=== PATIENT | female | born 1985 | race Caucasian/White ===

== ENCOUNTER 2016-06-28 11:54 | Emergency (ER) | payer MEDICARE, MEDICAID ==
[~2016-06-28] VITALS: Ht 162.6 cm; Wt 72.7 kg
[~2016-06-28 11:54] MED LIST: 00186-0370-20 IH; ADVAIR 500/28 DISKU1 IH; ADVAIR IH; ALBUTEROL SULFAT3 M3 IH; ALBUTEROL0.83 MG/ML IH; AMOXICILLIN 50500 MG PO; AMOXICILLIN 8751 TAB PO; ANXIETY MED; ASMANEX TW110 MCG/Ac; BACTROBAN15 GM TOP; BIOTIN1 MG PO; BREO IH; BROVANA15 MCG/2 M IH; CALCIUM1 CAP PO; CARAFATE 1GM1 G PO; CEPHALEXIN500 M1 PO; CLARITIN 1010 MG/TAB PO; CLIMARA 0.1 PATCH.W1 TD; CLONAZEPAM1 M1 PO; DEPO PROVER150 MG/ML IM; DOXYCYCLINE 10100 MG PO; DULERA1 AR1 IH; DUONEB 3 MG/3 ML3 ML IH; ERY-TAB250 M1 PO; ERY-TAB500 MG; FASTIN30 MG PO; FISH OIL SUPER1 SGL PO; FLAGYL500 MG PO; FLEXERIL 1010 MG/TAB PO; FLOMAX 0.40.4 MG/CAP PO; FLONASE NASAL S16 GM NS; FLOVENT 110MCG7.9 GM IH; FOLIC ACID 11 MG/TA1 PO; HYDROCODONE/APAP PO; IMPLANON68 MG ID; IPRATROPIUM BROM3 M1 IH; LEVAQUIN 5500 MG/TA1 PO; LORTAB 5/500 501 TAB PO; LORTAB PO; MACROBID 1100 MG/CAP PO; MEDROL 4MG DOSPA4 MG PO; MOTRIN 600600 MG/TAB PO; MULTIPLE VITAMI1 CAP PO; MYLANTA 150 ML150 M1 PO; NAPROSYN500 MG PO; NO HOME MEDICATIONS; NORCO 325 MG-101 TAB PO; NORCO 325 MG-51 TAB PO; NORCO 325 MG-7.1 TAB PO; NORCOELIX PO; ORAPRED ODT10 MG PO; OXYGEN; PEN-VEE K500 MG PO; PERCOCET 325 MG1 TA2 PO; PHENERGAN 25 TA25 MG PO; POTASSIUM595 MG PO; PREDNISONE10 MG PO; PREDNISONE20 MG PO; PRENATAL1 TA2 PO; PRENATAL1 TA7 PO; PRILOSEC 20MG20 MG PO; PROAIR HFA0.09 MG/AC IH; PROTONIX 40MG T40 MG PO; PROVENTIL0.09 MG/A1 IH; PULMICORT90 MCG/Act IH; PULMOCORT; PYRIDIUM200 M1 PO; QVAR0.08 MG/AC IH; ROXICODONE 55 MG/TAB PO; RT ADVAIR 528 DISKUS IH; SEPTRA DS 8001 TAB PO; SINGULAIR 110 MG/TAB PO; SINGULAIR PO; SINGULAIR10 MG PO; SPIRIVA18 MCG IH; SYMBICORT1 AE3 IH; TUSS PO; ULTRAM 50MG TAB50 MG PO; VENTOLIN0.09 MG IH; VICODIN 5/5001 UDTAB PO; VIT D; VITAMIN B COMPL1 T16 PO; VITAMIN B11000 MCG/M IM; VITAMIN B12100 MC1 SL; VITAMIN B12500 MCG PO; VITAMIN D 400400 IU PO; XOPENEX HF0.045 MG/A IH; ZANTAC 150MG T150 MG PO; ZITHROMAX500 M2 PO; ZOFRAN 4MG T4 MG/TAB PO; ZOFRAN ODT4 MG PO; ZYRTEC 10MG10 MG PO; ZYRTEC10 MG PO
[2016-06-28 11:57] VITALS: BP 112/94; TEMP 98.2
[2016-06-28 13:50] VITALS: PULSE 90
[2016-09-05] MEDS ORDERED: WELLBUTRIN SR100 M1 PO (14:39)
[2016-10-12] MEDS ORDERED: FASTIN30 MG PO (17:44)
== END 2016-06-28 13:50 | disposition home or self-care (01) ==
LOC: COL.ER 11:54
DX: J45.901 Unspecified asthma with (acute) exacerbation (principal); F17.210 Nicotine dependence, cigarettes, uncomplicated

== ENCOUNTER 2016-07-02 19:29 | Emergency (ER) | payer MEDICARE, MEDICAID ==
[~2016-07-02] VITALS: Ht 162.6 cm; Wt 72.7 kg
[2016-07-02 20:04] LABS: BASO # 0.1 (0.0-0.2); BASO % 1.2 % (0.0-2.0); EOS # 0.8 (0.0-0.7); EOS % 9.2 % (0-4.0); GRAN # 4.8 (1.4-6.5); GRAN % 52.8 % (42.2-75.2); HEMATOCRIT 38.3 % (37.0-47.0); HEMOGLOBIN 12.8 g/dl (12.5-16.0); LYMPH # 2.9 (1.2-3.4); LYMPH % 32.1 % (20.0-51.0); MEAN CELL VOLUME 88 fl (80.0-100.0); MEAN CORPUSCULAR HEMOGLOBIN 29 pg (27.0-31.0); MEAN CORPUSCULAR HGB CONC 33 g/dl (33.0-37.0); MONO # 0.4 (0.1-0.6); MONO % 4.4 % (1.7-9.3); PLATELET COUNT 333 K/mm3 (130-400); RED BLOOD COUNT 4.36 M/mm3 (4.10-5.30); REDCELL DISTRIBUTION WIDTH-CV 12.7 % (11.5-14.5); WHITE BLOOD COUNT 9.1 K/mm3 (4.8-10.8)
[2016-07-02] MEDS ORDERED: CELEXA 20MG20 MG/TAB PO (20:09)
[2016-07-02] MEDS ORDERED: XANAX .25M0.25 MG/TA PO (20:09)
[2016-07-02] MEDS ORDERED: TYLENOL W/COD1 UDTAB PO (20:10)
[2016-07-02] MEDS ORDERED: DRISDOL50000 IU PO (20:10)
[2016-07-02 20:15] LABS: ADJUSTED CALCIUM 9.6 mg/dL (8.4-10.2); ALANINE AMINOTRANSFERASE 37 U/L (9-52); ALBUMIN 3.8 gm/dL (3.5-5.0); ALKALINE PHOSPHATASE 65 U/L (50-136); ANION GAP 9 mmol/L (7-16); BILIRUBIN,TOTAL 0.4 mg/dL (0.0-1.0); BLOOD UREA NITROGEN 12 mg/dL (7-17); CALCIUM 9.4 mg/dL (8.4-10.2); CARBON DIOXIDE 25 mmol/L (22-30); CHLORIDE 106 mmol/L (98-107); CREATININE, serum 0.98 mg/dL (0.52-1.25); GLUCOSE 84 mg/dL (74-106); LIPASE 107 U/L (23-300); POTASSIUM 4.2 mmol/L (3.4-5.0); SODIUM 140 mmol/L (137-145); TOTAL PROTEIN 6.6 gm/dL (6.4-8.2)
[2016-07-02 20:27] LABS: C-REACTIVE PROTEIN < 0.5 mg/dL (0.0-0.9)
[2016-07-02 20:33] LABS: PH 6 (5-8); URINE APPEARANCE Hazy; URINE BACTERIA Rare /hpf; URINE BILIRUBIN Negative (NEGATIVE); URINE BLOOD 3+ (NEGATIVE); URINE COLOR Yellow; URINE GLUCOSE Negative (NEGATIVE); URINE KETONE Negative (NEGATIVE); URINE RBC >50 /hpf; URINE UROBILINOGEN Negative (NEGATIVE)
[2016-07-02] MEDS ORDERED: NORCO 325 MG-51 TAB PO (22:00)
[2016-07-02] MEDS ORDERED: ZOFRAN 4MG T4 MG/TAB PO (22:00)
[2016-07-02 23:00] VITALS: BP 107/66; PULSE 83; TEMP 97.9
[2016-09-05] MEDS ORDERED: WELLBUTRIN SR100 M1 PO (14:39)
[2016-10-12] MEDS ORDERED: FASTIN30 MG PO (17:44)
== END 2016-07-02 23:00 | disposition home or self-care (01) ==
LOC: COL.ER 19:29
PROVIDERS: Emergency Medicine
DX: R10.84 Generalized abdominal pain (principal); K59.09 Other constipation; Z98.84 Bariatric surgery status; F17.200 Nicotine dependence, unspecified, uncomplicated
CPT/HCPCS: J1170; J2405; J7030; Q9967

== ENCOUNTER 2016-07-17 07:09 | Inpatient (IN) | payer MEDICARE, MEDICAID ==
[~2016-07-17] VITALS: Ht 162.6 cm; Wt 72.1 kg
[2016-07-17] VITALS (11 sets, daily range): BP systolic 97–119; BP diastolic 59–76; PULSE 53–100; TEMP 97.5–98
[~2016-07-17 07:09] MED LIST changes: +CELEXA 20MG20 MG/TAB PO; +DRISDOL50000 IU PO; +TYLENOL W/COD1 UDTAB PO; +XANAX .25M0.25 MG/TA PO
[2016-07-17] MEDS ORDERED: PROVENTIL0.09 MG/A1 IH (08:47)
[2016-07-17] MEDS ORDERED: ALBUTEROL SULFAT3 M3 IH (08:48)
[2016-07-18 03:50] VITALS: BP 107/60; PULSE 69; TEMP 98
[2016-07-18 07:00] VITALS: BP 101/50; PULSE 78; TEMP 97.6
[2016-07-18 08:42] LABS: BASO % 0.4 % (0.0-2.0); EOS # 0.2 (0.0-0.7); EOS % 2.2 % (0-4.0); GRAN # 4.6 (1.4-6.5); GRAN % 59.4 % (42.2-75.2); LYMPH # 2.4 (1.2-3.4); LYMPH % 31.1 % (20.0-51.0); MEAN CELL VOLUME 88 fl (80.0-100.0); MEAN CORPUSCULAR HGB CONC 34 g/dl (33.0-37.0); MEAN PLATELET VOLUME 9.2 fl (7.4-10.4); MONO # 0.5 (0.1-0.6); MONO % 6.6 % (1.7-9.3); PLATELET COUNT 194 K/mm3 (130-400); RED BLOOD COUNT 3.82 M/mm3 (4.10-5.30); REDCELL DISTRIBUTION WIDTH-CV 12.3 % (11.5-14.5); WHITE BLOOD COUNT 7.7 K/mm3 (4.8-10.8)
[2016-07-18 08:51] LABS: HEMATOCRIT 33.7 % (37.0-47.0); HEMOGLOBIN 11.3 g/dl (12.5-16.0); MEAN CORPUSCULAR HEMOGLOBIN 30 pg (27.0-31.0)
[2016-07-18] MEDS ORDERED: PERCOCET 325 MG1 TA2 PO (13:04)
[2016-07-18 15:17] VITALS: BP 92/56; PULSE 56; TEMP 97.8
[2016-07-18 21:15] VITALS: BP 100/65; PULSE 61; TEMP 98.3
[2016-07-19 04:30] VITALS: BP 102/38; PULSE 61; TEMP 97.7
[2016-07-19 07:50] VITALS: BP 90/47; PULSE 52; TEMP 98.1
[2016-09-05] MEDS ORDERED: WELLBUTRIN SR100 M1 PO (14:39)
[2016-10-12] MEDS ORDERED: FASTIN30 MG PO (17:44)
== END 2016-07-19 13:20 | disposition home or self-care (01) | DRG 743 ==
LOC: SDCO 07:09 → OB 10:46
PROVIDERS: Obstetrics & Gynecology
PROC: 0UT7FZZ Resection of Bilateral Fallopian Tubes, Via Natural or Artificial Opening With Percutaneous Endoscopic Assistance (ICD-10-PCS; 2016-07-17)
PROC: 0JPV0HZ Removal of Contraceptive Device from Upper Extremity Subcutaneous Tissue and Fascia, Open Approach (ICD-10-PCS; 2016-07-17)
PROC: 0UT9FZZ Resection of Uterus, Via Natural or Artificial Opening With Percutaneous Endoscopic Assistance (ICD-10-PCS; principal; 2016-07-17 09:00)
DX: N92.1 Excessive and frequent menstruation with irregular cycle (principal); E28.2 Polycystic ovarian syndrome; F17.210 Nicotine dependence, cigarettes, uncomplicated; N94.6 Dysmenorrhea, unspecified; N94.10 Unspecified dyspareunia; J44.9 Chronic obstructive pulmonary disease, unspecified; J45.909 Unspecified asthma, uncomplicated; Z98.84 Bariatric surgery status; Z30.46 Encounter for surveillance of implantable subdermal contraceptive
CPT/HCPCS: A4315; A9284; J0330; J0690; J1100; J1170; J1885; J2175; J2270; J2274; J2405; J2704; J2710; J3010; J7120

== ENCOUNTER 2016-07-21 19:48 | Emergency (ER) | payer MEDICARE, MEDICAID ==
[~2016-07-21] VITALS: Ht 162.6 cm; Wt 73.2 kg
[2016-07-21 19:53] VITALS: BP 119/90; TEMP 98.4
[2016-07-21 20:24] LABS: PH 8 (5-8); SQUAMOUS EPITHELIAL 0-2 /hpf; URINE APPEARANCE Clear; URINE BACTERIA None Seen /hpf; URINE BILIRUBIN Negative (NEGATIVE); URINE BLOOD 1+ (NEGATIVE); URINE COLOR Yellow; URINE GLUCOSE Negative (NEGATIVE); URINE KETONE Negative (NEGATIVE); URINE UROBILINOGEN Negative (NEGATIVE)
[2016-07-21 20:36] LABS: BASO # 0.1 (0.0-0.2); BASO % 0.7 % (0.0-2.0); EOS # 0.4 (0.0-0.7); EOS % 4.5 % (0-4.0); GRAN # 5.6 (1.4-6.5); GRAN % 64.3 % (42.2-75.2); HEMATOCRIT 37.1 % (37.0-47.0); HEMOGLOBIN 12.8 g/dl (12.5-16.0); LYMPH # 2.3 (1.2-3.4); LYMPH % 25.8 % (20.0-51.0); MEAN CELL VOLUME 85 fl (80.0-100.0); MEAN CORPUSCULAR HEMOGLOBIN 29 pg (27.0-31.0); MEAN CORPUSCULAR HGB CONC 35 g/dl (33.0-37.0); MEAN PLATELET VOLUME 9.5 fl (7.4-10.4); MONO # 0.4 (0.1-0.6); MONO % 4.5 % (1.7-9.3); PLATELET COUNT 256 K/mm3 (130-400); RED BLOOD COUNT 4.36 M/mm3 (4.10-5.30); WHITE BLOOD COUNT 8.7 K/mm3 (4.8-10.8)
[2016-07-21 20:46] LABS: CALCIUM 9.5 mg/dL (8.4-10.2); CREATININE, serum 0.88 mg/dL (0.52-1.25); POTASSIUM 4.1 mmol/L (3.4-5.0)
[2016-07-21 21:03] VITALS: PULSE 86
[2016-09-05] MEDS ORDERED: WELLBUTRIN SR100 M1 PO (14:39)
[2016-10-12] MEDS ORDERED: FASTIN30 MG PO (17:44)
== END 2016-07-21 21:04 | disposition home or self-care (01) ==
LOC: COL.ER 19:48
PROVIDERS: Emergency Medicine
DX: S30.1XXA Contusion of abdominal wall, initial encounter (principal); W18.09XA Striking against other object with subsequent fall, initial encounter

== ENCOUNTER → 2016-09-05 | Outpatient (CLI) | payer MEDICARE, MEDICAID ==
[~2016-09-05] VITALS: Ht 162.6 cm; Wt 72.8 kg
[~2016-09-05] MED LIST changes: +DOXYCYCLINE HY100 MG PO; +WELLBUTRIN SR100 M1 PO
[2016-09-05 14:40] VITALS: BP 111/76; PULSE 101
== END ==
LOC: LIGHT 12:13
DX: Z98.84 Bariatric surgery status (principal); Z68.27 Body mass index [BMI] 27.0-27.9, adult

== ENCOUNTER 2016-09-19 11:29 | Emergency (ER) | payer MEDICARE, MEDICAID ==
[~2016-09-19] VITALS: Ht 162.6 cm; Wt 72.7 kg
[~2016-09-19 11:29] MED LIST changes: -DOXYCYCLINE HY100 MG PO
[2016-09-19 12:11] LABS: BASO # 0.1 (0.0-0.2); BASO % 1.2 % (0.0-2.0); EOS # 0.7 (0.0-0.7); EOS % 10.6 % (0-4.0); GRAN # 3.4 (1.4-6.5); GRAN % 51.2 % (42.2-75.2); HEMATOCRIT 43.5 % (37.0-47.0); HEMOGLOBIN 14.4 g/dl (12.5-16.0); LYMPH # 2.1 (1.2-3.4); LYMPH % 31.5 % (20.0-51.0); MEAN CELL VOLUME 88 fl (80.0-100.0); MEAN CORPUSCULAR HEMOGLOBIN 29 pg (27.0-31.0); MEAN CORPUSCULAR HGB CONC 33 g/dl (33.0-37.0); MONO # 0.4 (0.1-0.6); MONO % 5.2 % (1.7-9.3); PLATELET COUNT 289 K/mm3 (130-400); RED BLOOD COUNT 4.96 M/mm3 (4.10-5.30); REDCELL DISTRIBUTION WIDTH-CV 12.2 % (11.5-14.5); WHITE BLOOD COUNT 6.7 K/mm3 (4.8-10.8)
[2016-09-19 12:14] LABS: ADJUSTED CALCIUM 9.2 mg/dL (8.4-10.2); ALANINE AMINOTRANSFERASE 24 U/L (9-52); ALBUMIN 4.2 gm/dL (3.5-5.0); ALKALINE PHOSPHATASE 65 U/L (50-136); ANION GAP 12 mmol/L (7-16); BILIRUBIN,TOTAL 0.6 mg/dL (0.0-1.0); BLOOD UREA NITROGEN 10 mg/dL (7-17); CALCIUM 9.4 mg/dL (8.4-10.2); CARBON DIOXIDE 24 mmol/L (22-30); CHLORIDE 105 mmol/L (98-107); CREATININE, serum 0.94 mg/dL (0.52-1.25); GLUCOSE 82 mg/dL (74-106); POTASSIUM 4.2 mmol/L (3.4-5.0); SODIUM 141 mmol/L (137-145); TOTAL PROTEIN 6.9 gm/dL (6.4-8.2)
[2016-09-19 12:26] LABS: TROPONIN-I < 0.012 ng/mL (0.000-0.034)
[2016-09-19 13:47] VITALS: TEMP 97.9
[2016-09-19] MEDS ORDERED: PREDNISONE20 MG PO (14:23)
[2016-09-19] MEDS ORDERED: DOXYCYCLINE HY100 MG PO (14:23)
[2016-09-19 14:37] VITALS: BP 120/78; PULSE 96
[2016-10-12] MEDS ORDERED: FASTIN30 MG PO (17:44)
== END 2016-09-19 14:38 | disposition home or self-care (01) ==
LOC: COL.ER 11:29
PROVIDERS: Nurse Practitioner
DX: J45.901 Unspecified asthma with (acute) exacerbation (principal); J44.9 Chronic obstructive pulmonary disease, unspecified; F17.210 Nicotine dependence, cigarettes, uncomplicated; F41.9 Anxiety disorder, unspecified; Z99.81 Dependence on supplemental oxygen; R00.0 Tachycardia, unspecified
CPT/HCPCS: J1885; J2930

== ENCOUNTER → 2016-10-12 | Outpatient (CLI) | payer MEDICARE, MEDICAID ==
[~2016-10-12] VITALS: Ht 162.6 cm; Wt 74.4 kg
[~2016-10-12] MED LIST changes: +DOXYCYCLINE HY100 MG PO
[2016-10-12 14:15] VITALS: BP 115/66; PULSE 87
== END ==
LOC: LIGHT 11:19
DX: Z98.84 Bariatric surgery status (principal); Z68.28 Body mass index [BMI] 28.0-28.9, adult

== ENCOUNTER → 2016-11-23 | Outpatient (CLI) | payer MEDICARE, MEDICAID ==
[~2016-11-23] VITALS: Ht 162.6 cm; Wt 74.2 kg
[2016-11-23 10:55] VITALS: BP 111/70; PULSE 108
== END ==
LOC: LIGHT 11-02 13:21
DX: J45.909 Unspecified asthma, uncomplicated (principal); F41.9 Anxiety disorder, unspecified; E66.3 Overweight; Z68.28 Body mass index [BMI] 28.0-28.9, adult; Z71.3 Dietary counseling and surveillance

== ENCOUNTER 2017-02-16 19:07 | Emergency (ER) | payer MEDICARE, MEDICAID ==
[~2017-02-16] VITALS: Ht 162.6 cm; Wt 75.0 kg
[2017-02-16 19:08] VITALS: BP 113/73; TEMP 98.3
[2017-02-16 20:55] VITALS: PULSE 86
== END 2017-02-16 20:55 | disposition home or self-care (01) ==
LOC: COL.ER 19:07
DX: F41.9 Anxiety disorder, unspecified (principal); J45.909 Unspecified asthma, uncomplicated; F17.210 Nicotine dependence, cigarettes, uncomplicated; Z90.710 Acquired absence of both cervix and uterus; Z98.84 Bariatric surgery status; Z98.890 Other specified postprocedural states

== ENCOUNTER 2017-02-27 11:18 | Emergency (ER) | payer MEDICARE, MEDICAID ==
[~2017-02-27] VITALS: Ht 162.6 cm; Wt 75.0 kg
[2017-02-27 11:24] VITALS: TEMP 98.2
[2017-02-27 12:23] LABS: BASO # 0.1 (0.0-0.2); BASO % 0.8 % (0.0-2.0); EOS # 0.3 (0.0-0.7); EOS % 4.1 % (0-4.0); GRAN # 3.8 (1.4-6.5); GRAN % 62.6 % (42.2-75.2); HEMATOCRIT 38.7 % (37.0-47.0); HEMOGLOBIN 12.7 g/dl (12.5-16.0); LYMPH # 1.6 (1.2-3.4); LYMPH % 26.9 % (20.0-51.0); MEAN CELL VOLUME 89 fl (80.0-100.0); MEAN CORPUSCULAR HEMOGLOBIN 29 pg (27.0-31.0); MEAN CORPUSCULAR HGB CONC 33 g/dl (33.0-37.0); MEAN PLATELET VOLUME 8.9 fl (7.4-10.4); MONO # 0.3 (0.1-0.6); MONO % 5.3 % (1.7-9.3); PLATELET COUNT 245 K/mm3 (130-400); RED BLOOD COUNT 4.34 M/mm3 (4.10-5.30); WHITE BLOOD COUNT 6.1 K/mm3 (4.8-10.8)
[2017-02-27 12:37] LABS: ADJUSTED CALCIUM 9.5 mg/dL (8.4-10.2); ALANINE AMINOTRANSFERASE 27 U/L (9-52); ALBUMIN 3.9 gm/dL (3.5-5.0); ALKALINE PHOSPHATASE 67 U/L (50-136); ANION GAP 7 mmol/L (7-16); BILIRUBIN,TOTAL 0.3 mg/dL (0.0-1.0); BLOOD UREA NITROGEN 17 mg/dL (7-17); CALCIUM 9.4 mg/dL (8.4-10.2); CARBON DIOXIDE 27 mmol/L (22-30); CHLORIDE 106 mmol/L (98-107); CREATININE, serum 0.85 mg/dL (0.52-1.25); GLUCOSE 92 mg/dL (74-106); POTASSIUM 4.9 mmol/L (3.4-5.0); SODIUM 140 mmol/L (137-145); TOTAL PROTEIN 6.6 gm/dL (6.4-8.2)
[2017-02-27 12:39] LABS: C-REACTIVE PROTEIN < 0.5 mg/dL (0.0-0.9)
[2017-02-27 12:45] LABS: TROPONIN-I < 0.012 ng/mL (0.000-0.034)
[2017-02-27 13:40] VITALS: BP 115/74; PULSE 84
== END 2017-02-27 13:45 | disposition home or self-care (01) ==
LOC: COL.ER 11:18
PROVIDERS: Emergency Medicine
DX: H49.01 Third [oculomotor] nerve palsy, right eye (principal); H49.21 Sixth [abducent] nerve palsy, right eye; R07.9 Chest pain, unspecified; J45.909 Unspecified asthma, uncomplicated; F17.210 Nicotine dependence, cigarettes, uncomplicated

== ENCOUNTER → 2017-03-12 | Outpatient (CLI) | payer MEDICARE, MEDICAID | LOC: COL.RAD 12:17 | DX: K44.9 Diaphragmatic hernia without obstruction or gangrene (principal); H02.401 Unspecified ptosis of right eyelid; Z98.84 Bariatric surgery status; Z98.82 Breast implant status | CPT/HCPCS: A9585; Q9967 ==

== ENCOUNTER → 2017-04-04 | Outpatient (CLI) | payer MEDICARE, MEDICAID ==
[2017-04-04 14:22] LABS: THYROXINE (T4)-TOTAL 10.9 ug/dL (5.5-11.0)
[2017-04-04 14:31] LABS: THYROID STIMULATING HORMONE 2.6 uIU/mL (0.465-4.680)
== END ==
LOC: COL.LAB 12:46
PROVIDERS: Psychiatry & Neurology Neurology
DX: H02.401 Unspecified ptosis of right eyelid (principal)

== ENCOUNTER → 2017-05-10 | Outpatient (CLI) | payer MEDICARE, MEDICAID ==
[~2017-05-10] VITALS: Ht 162.6 cm; Wt 76.2 kg
[2017-05-10 09:19] VITALS: BP 100/64; PULSE 72
== END ==
LOC: LIGHT 09:11
DX: J45.909 Unspecified asthma, uncomplicated (principal); F41.9 Anxiety disorder, unspecified; E66.3 Overweight; Z68.28 Body mass index [BMI] 28.0-28.9, adult; Z71.3 Dietary counseling and surveillance; F50.9 Eating disorder, unspecified

== ENCOUNTER 2017-05-21 23:23 | Emergency (ER) | payer MEDICARE, MEDICAID ==
[~2017-05-21] VITALS: Ht 162.6 cm; Wt 75.0 kg
[2017-05-21 23:55] LABS: BASO # 0.1 (0.0-0.2); EOS # 0.4 (0.0-0.7); GRAN # 3.8 (1.4-6.5); GRAN % 44.7 % (42.2-75.2); HEMATOCRIT 40.3 % (37.0-47.0); HEMOGLOBIN 13.3 g/dl (12.5-16.0); LYMPH # 3.8 (1.2-3.4); LYMPH % 44.4 % (20.0-51.0); MEAN CELL VOLUME 89 fl (80.0-100.0); MEAN CORPUSCULAR HEMOGLOBIN 29 pg (27.0-31.0); MEAN CORPUSCULAR HGB CONC 33 g/dl (33.0-37.0); MEAN PLATELET VOLUME 9.1 fl (7.4-10.4); MONO # 0.4 (0.1-0.6); MONO % 4.6 % (1.7-9.3); PLATELET COUNT 344 K/mm3 (130-400); RED BLOOD COUNT 4.53 M/mm3 (4.10-5.30); WHITE BLOOD COUNT 8.6 K/mm3 (4.8-10.8)
[2017-05-21] MEDS ORDERED: VENTOLIN0.09 MG IH (23:55)
[2017-05-21] MEDS ORDERED: ZOFRAN 4MG T4 MG/TAB PO (23:55)
[2017-05-22 00:15] LABS: ADJUSTED CALCIUM 9.6 mg/dL (8.4-10.2); ALANINE AMINOTRANSFERASE 34 U/L (9-52); ALBUMIN 4.3 gm/dL (3.5-5.0); ALKALINE PHOSPHATASE 68 U/L (50-136); ANION GAP 9 mmol/L (7-16); BILIRUBIN,TOTAL 0.3 mg/dL (0.0-1.0); BLOOD UREA NITROGEN 9 mg/dL (7-17); CALCIUM 9.8 mg/dL (8.4-10.2); CARBON DIOXIDE 23 mmol/L (22-30); CHLORIDE 107 mmol/L (98-107); CREATININE, serum 0.93 mg/dL (0.52-1.25); GLUCOSE 154 mg/dL (74-106); LIPASE 129 U/L (23-300); POTASSIUM 4.2 mmol/L (3.4-5.0); SODIUM 139 mmol/L (137-145); TOTAL PROTEIN 7.1 gm/dL (6.4-8.2)
[2017-05-22 00:18] LABS: C-REACTIVE PROTEIN < 0.5 mg/dL (0.0-0.9)
[2017-05-22] MEDS ORDERED: PHENERGAN 25 TA25 MG PO (00:39)
[2017-05-22 01:33] VITALS: BP 122/83; PULSE 64; TEMP 97.5
== END 2017-05-22 01:35 | disposition home or self-care (01) ==
LOC: COL.ER 23:23
PROVIDERS: Emergency Medicine
DX: R11.10 Vomiting, unspecified (principal); R19.7 Diarrhea, unspecified; K21.9 Gastro-esophageal reflux disease without esophagitis; J45.909 Unspecified asthma, uncomplicated; F17.210 Nicotine dependence, cigarettes, uncomplicated; Z90.710 Acquired absence of both cervix and uterus
CPT/HCPCS: J1170; J2405; J2550; J3010; J7030

== ENCOUNTER → 2017-06-14 | Outpatient (CLI) | payer MEDICARE, MEDICAID ==
[~2017-06-14] VITALS: Ht 162.6 cm; Wt 74.6 kg
[2017-06-14 11:41] VITALS: BP 100/72; PULSE 76
== END ==
LOC: LIGHT
DX: J45.909 Unspecified asthma, uncomplicated (principal); F41.9 Anxiety disorder, unspecified; E66.3 Overweight; Z68.28 Body mass index [BMI] 28.0-28.9, adult; Z71.3 Dietary counseling and surveillance; F50.9 Eating disorder, unspecified
CPT/HCPCS: G0463

== ENCOUNTER 2020-07-27 18:38 | Emergency (ER) | payer SELFPAY ==
[~2020-07-27] VITALS: Ht 160 cm; Wt 77.3 kg
[~2020-07-27 18:38] MED LIST changes: +ADIPEX-P37.5 MG PO; +PROVIGIL 100MG100 MG PO; +SPIRIVA RESPIMAT4 GM IH
[2020-07-27 18:51] VITALS: TEMP 97.9
[2020-07-27] MEDS ORDERED: FLEXERIL 1010 MG/TAB PO (19:38)
[2020-07-27] MEDS ORDERED: NORCO 325 MG-51 TAB PO (19:38)
[2020-07-27 19:51] VITALS: BP 104/78; PULSE 91
== END 2020-07-27 19:52 | disposition home or self-care (01) ==
LOC: COL.ER 18:38
DX: M62.830 Muscle spasm of back (principal); J44.9 Chronic obstructive pulmonary disease, unspecified; F17.200 Nicotine dependence, unspecified, uncomplicated; Z98.84 Bariatric surgery status; Z90.710 Acquired absence of both cervix and uterus; Z79.51 Long term (current) use of inhaled steroids

== ENCOUNTER 2020-08-04 06:37 | Day surgery (SDC) | payer SELFPAY ==
[~2020-08-04] VITALS: Ht 162.6 cm; Wt 79.2 kg
[2020-08-04] MEDS ORDERED: CELEBREX 200MG200 MG PO ×2 (07:28→07:29)
[2020-08-04 08:07] VITALS: BP 121/76; PULSE 84; TEMP 98.1
[2020-08-04 10:25] VITALS: BP 127/86; PULSE 87; TEMP 97.9
[2020-08-04 10:35] VITALS: BP 120/79; PULSE 75
[2020-08-04 10:45] VITALS: TEMP 98.8
[2020-08-04 11:00] VITALS: BP 123/78; PULSE 70
[2020-08-04 11:15] VITALS: BP 120/81; PULSE 69
== END 2020-08-04 11:45 | disposition home or self-care (01) ==
LOC: SDCO 06:37
DX: K00.6 Disturbances in tooth eruption (principal); K02.9 Dental caries, unspecified; J45.998 Other asthma; K21.9 Gastro-esophageal reflux disease without esophagitis; F17.210 Nicotine dependence, cigarettes, uncomplicated; Z98.84 Bariatric surgery status; Z88.8 Allergy status to other drugs, medicaments and biological substances; Z91.040 Latex allergy status; Z79.899 Other long term (current) drug therapy; Z79.1 Long term (current) use of non-steroidal anti-inflammatories (NSAID)
CPT/HCPCS: J2550; J2704; J3010

== ENCOUNTER 2021-03-25 06:50 | Emergency (ER) | payer SELFPAY ==
[~2021-03-25] VITALS: Ht 160 cm; Wt 72.7 kg
[~2021-03-25 06:50] MED LIST changes: +CELEBREX 200MG200 MG PO
[2021-03-25 06:59] VITALS: TEMP 97.1
[2021-03-25 07:42] LABS: BASO % 0.1 % (0.0-2.0); EOS # 0.4 K/mm3 (0.0-0.7); EOS % 4.3 % (0-4.0); GRAN # 7.5 K/mm3 (1.4-6.5); GRAN % 72.9 % (42.2-75.2); HEMOGLOBIN 11.3 g/dl (12.5-16.0); LYMPH # 1.8 K/mm3 (1.2-3.4); LYMPH % 17.4 % (20.0-51.0); MEAN CELL VOLUME 88 fl (80.0-100.0); MEAN CORPUSCULAR HEMOGLOBIN 29 pg (27.0-31.0); MEAN CORPUSCULAR HGB CONC 33 g/dl (33.0-37.0); MEAN PLATELET VOLUME 9.3 fl (7.4-10.4); MONO # 0.5 K/mm3 (0.1-0.6); MONO % 4.9 % (1.7-9.3); PLATELET COUNT 319 K/mm3 (130-400); RED BLOOD COUNT 3.91 M/mm3 (4.10-5.30); REDCELL DISTRIBUTION WIDTH-CV 14.5 % (11.5-14.5)
[2021-03-25 07:43] LABS: HEMATOCRIT 34.4 % (37.0-47.0)
[2021-03-25 08:01] LABS: COLLECTION METHOD CLEAN CATCH
[2021-03-25 08:02] LABS: ALBUMIN 3.8 gm/dL (3.5-5.0); BILIRUBIN,TOTAL 0.3 mg/dL (0.2-1.2); CALCIUM 9.3 mg/dL (8.4-10.2); CREATININE, serum 0.84 mg/dL (0.57-1.11); POTASSIUM 3.8 mmol/L (3.5-4.5)
[2021-03-25 08:16] LABS: MUCOUS Present /lpf; PH 5 (5-8); URINE APPEARANCE Hazy; URINE BACTERIA Rare /hpf; URINE BILIRUBIN Positive (NEGATIVE); URINE BLOOD Negative (NEGATIVE); URINE COLOR Yellow; URINE GLUCOSE Negative (NEGATIVE); URINE KETONE 1+ (NEGATIVE); URINE LEUKOCYTE ESTERASE Negative (NEGATIVE); URINE NITRATE Negative (NEGATIVE); URINE PROTEIN(semi-quant) 2+ (NEGATIVE); URINE RBC 0-2 /hpf; URINE WBC 0-2 /hpf
[2021-03-25 08:22] LABS: TRICYCLIC ANTIDEPRESS URINE NEGATIVE
[2021-03-25] MEDS ORDERED: ZOFRAN ODT4 MG PO (11:10)
[2021-03-25] MEDS ORDERED: NORCO 325 MG-51 TAB PO (11:10)
[2021-03-25 11:24] VITALS: BP 107/72; PULSE 64
== END 2021-03-25 11:31 | disposition home or self-care (01) ==
LOC: COL.ER 06:50
PROVIDERS: Personal Emergency Response Attendant
DX: M54.6 Pain in thoracic spine (principal); R11.2 Nausea with vomiting, unspecified; J44.9 Chronic obstructive pulmonary disease, unspecified; F17.210 Nicotine dependence, cigarettes, uncomplicated; Z90.710 Acquired absence of both cervix and uterus; Z98.84 Bariatric surgery status; Z87.442 Personal history of urinary calculi
CPT/HCPCS: J2270; J2405; J7030; Q9967

== ENCOUNTER 2021-04-25 12:02 | Emergency (ER) | payer SELFPAY ==
[~2021-04-25] VITALS: Ht 160 cm; Wt 72.7 kg
[2021-04-25 12:11] VITALS: TEMP 97.8
[2021-04-25] MEDS ORDERED: FLEXERIL 1010 MG/TAB PO (14:00)
[2021-04-25] MEDS ORDERED: MEDROL 4MG DOSPA4 MG PO (14:00)
[2021-04-25 14:40] VITALS: BP 102/61; PULSE 88
== END 2021-04-25 15:10 | disposition home or self-care (01) ==
LOC: COL.ER 12:02
DX: M54.6 Pain in thoracic spine (principal); R11.2 Nausea with vomiting, unspecified; F17.210 Nicotine dependence, cigarettes, uncomplicated
CPT/HCPCS: J1170; J2550